=== PATIENT | female | born 1965 | race Two or more races ===

== ENCOUNTER 2016-04-14 13:51 | Observation (INO) | payer OTHER ==
[2016-04-14] MEDS: LORAZEPAM 1 MG TABLET PO PRN ×2 (14:53→23:27)
[2016-04-14] MEDS: NORMAL SALINE 1000 ML 1,000 ML IV PRN ×3 (15:04→20:37)
[2016-04-14 15:20] LABS: ABSOLUTE LYMPHOCYTES (AUTO) 0.9 10^3/uL (0.5-4.7); ABSOLUTE MONOCYTES (AUTO) 0.6 10^3/uL (0.1-1.4); ABSOLUTE NEUT (AUTO) 6.6 10^3/uL (1.7-8.2); BASOPHILS % (AUTO) 0.1 % (0-2); EOSINOPHILS % (AUTO) 0.1 % (0-6); HEMATOCRIT 39.5 % (36.0-47.0); HEMOGLOBIN 13.4 g/dL (12.0-15.5); HGB HCT DIFFERENCE 0.7; MEAN CORPUSCULAR HEMOGLOBIN 29.3 pg (27.0-33.4); MEAN CORPUSCULAR HGB CONC 33.9 g/dL (32.0-36.0); MEAN CORPUSCULAR VOLUME 87 fl (80-97); MONOCYTES % (AUTO) 7.1 % (3-13); RED BLOOD COUNT 4.57 10^6/uL (3.72-5.28); SEGMENTED NEUTROPHILS % (AUTO) 81.7 % (42-78)
[2016-04-14 15:30] LABS: APPEARANCE,URINE SLIGHTLY-CLOUDY; BILIRUBIN,URINE NEGATIVE (NEGATIVE); GLUCOSE, URINE NEGATIVE (NEGATIVE); KETONES,URINE TRACE mg/dL (NEGATIVE); LEUKOCYTE ESTERASE,URINE NEGATIVE (NEGATIVE); NITRITE,URINE NEGATIVE (NEGATIVE); PROTEIN,URINE NEGATIVE (NEGATIVE); URINE SPECIFIC GRAVITY 1.008; UROBILINOGEN,URINE NEGATIVE mg/dL (<2.0)
[2016-04-14 15:40] LABS: ALANINE AMINOTRANSFERASE 39 U/L (9-52); ALBUMIN 4.7 g/dL (3.5-5.0); ALKALINE PHOSPHATASE 70 U/L (38-126); ANION GAP 17 (5-19); ASPARTATE AMINO TRANSFERASE 49 U/L (14-36); BILIRUBIN,TOTAL 0.6 mg/dL (0.2-1.3); BLOOD UREA NITROGEN 7 mg/dL (7-20); CALCIUM 9.8 mg/dL (8.4-10.2); CARBON DIOXIDE 26 mmol/L (22-30); CHLORIDE 94 mmol/L (98-107); CREATINE KINASE 103 U/L (30-135); CREATININE RESULT 0.56 mg/dL (0.52-1.25); GLUCOSE 104 mg/dL (75-110); POTASSIUM 4.1 mmol/L (3.6-5.0); SODIUM 136.9 mmol/L (137-145); TOTAL PROTEIN 7.3 g/dL (6.3-8.2)
[2016-04-14 15:55] LABS: CREATINE KINASE MB 0.8 ng/mL (<4.55)
[2016-04-14 15:59] LABS: TROPONIN I 0.066 ng/mL
--- NOTE | 2016-04-14 16:04 | EKG REPORT ---
SEVERITY:- OTHERWISE NORMAL ECG - SINUS TACHYCARDIA : Confirmed by: Jose Mcghee 14-Apr-2016 16:03:11
[2016-04-14 16:11] LABS: THYROID STIMULATING HORMONE 0.89 uIU/mL (0.47-4.68)
[2016-04-14 18:05] LABS: CREATINE KINASE MB 0.81 ng/mL (<4.55)
[2016-04-14 18:06] LABS: TROPONIN I < 0.012 ng/mL
--- NOTE | 2016-04-14 18:19 | ER Document Report ---
ED General - General Chief Complaint: Pelvic Pain Stated Complaint: WEAKNESS Time seen by provider: 18:18 Mode of Arrival: Ambulatory Information source: Patient Notes: This is a 50-year-old female that was brought in by ambulance from [facility] because of a syncopal episode last night. Patient does give a 3 day history of nausea, vomiting and diarrhea. Patient is not been able to tolerate her medicines (Lexapro, Sudafed, Tylenol). She states that she fell and hit her head and had loss of consciousness last night. She's been very jittery and just does not "feel right". - HPI Onset: Just prior to arrival Onset/Duration: Gradual Quality of pain: No pain Severity: None Pain Level: Denies Associated symptoms: denies: Chills, Fever, Shortness of breath Exacerbated by: Denies Relieved by: Denies Similar symptoms previously: No Recently seen / treated by doctor: No - Related Data Allergies/Adverse Reactions: msg Allergy (Uncoded 04/14/16 16:34) Past Medical History - General Information source: Patient - Social History Smoking Status: Never Smoker Cigarette use (# per day): No Chew tobacco use (# tins/day): No Frequency of alcohol use: None Drug Abuse: None Lives with: Family Family History: Reviewed & Not Pertinent Patient has suicidal ideation: No Patient has homicidal ideation: No - Medical History Medical History: Negative - Past Medical History Cardiac Medical History: Reports: Hx Hypercholesterolemia, Hx Hypertension Pulmonary Medical History: Reports: None EENT Medical History: Reports: None Neurological Medical History: Reports: None Endocrine Medical History: Reports: None Renal/ Medical History: Reports: None Malignancy Medical History: Reports: None GI Medical History: Reports: None Musculoskeltal Medical History: Reports None Skin Medical History: Reports None Psychiatric Medical History: Reports: None Traumatic Medical History: Reports: None Infectious Medical History: Reports: None Surgical Hx: Negative Review of Systems - Review of Systems Constitutional: No symptoms reported EENT: No symptoms reported Cardiovascular: See HPI Respiratory: No symptoms reported Gastrointestinal: No symptoms reported Genitourinary: No symptoms reported Female Genitourinary: No symptoms reported Musculoskeletal: No symptoms reported Skin: No symptoms reported Hematologic/Lymphatic: No symptoms reported Neurological/Psychological: No symptoms reported Physical Exam - Vital signs Vitals: Pulse Ox 96 04/14/16 15:12 Notes: Physical exam: GENERAL: 50-year-old female, alert and oriented 3, the patient appears flushed , she is tachycardic. HEAD: Atraumatic, normocephalic. EYES: Pupils equal round and reactive to light, extraocular movements intact, sclera anicteric, conjunctiva are normal. ENT: TMs normal, nares patent, oropharynx clear without exudates. Moist mucous membranes. NECK: Normal range of motion, supple without lymphadenopathy or JVD. LUNGS: Breath sounds clear to auscultation bilaterally and equal. No wheezes rales or rhonchi. HEART: Tachycardia without murmurs, rubs or gallops. ABDOMEN: Soft, nontender, normoactive bowel sounds. No guarding, no rebound. No masses appreciated. EXTREMITIES: Normal range of motion, no pitting or edema. No clubbing or cyanosis. NEUROLOGICAL: Cranial nerves II through XII grossly intact. Normal speech, normal gait. PSYCH: Normal mood, normal affect. SKIN: Warm, Dry, normal turgor, no rashes or lesions noted. Course - Vital Signs Vital signs: Temp Pulse Resp BP Pulse Ox 98.2 F 12 138/103 H 99 04/14/16 15:13 04/14/16 18:01 04/14/16 18:00 04/14/16 18:01 - Laboratory Result Diagrams: 04/14/16 15:00 04/14/16 15:00 Laboratory results interpreted by me: 04/14/16 04/14/16 04/14/16 15:00 15:00 15:00 RDW 15.0 H Seg Neutrophils % 81.7 H Lymphocytes % 11.0 L Sodium 136.9 L Chloride 94 L AST 49 H Urine Ketones TRACE H Urine Blood SMALL H - Diagnostic Test Radiology reviewed: Image reviewed, Reports reviewed - CTA shows no pulmonary emboli - EKG Interpretation by Mi Rate: Tachycardia Rhythm: NSR - EKG shows sinus tachycardia with a ventricular rate of 111 Discharge - Discharge Clinical Impression: syncope Condition: Stable Disposition: HOME, SELF-CARE Admitting Provider: Hospitalist - Dr. Ying Unit Admitted: Telemetry
[2016-04-14 20:35] LABS: URINE BARBITURATES SCREEN NEGATIVE; URINE METHADONE SCREEN NEGATIVE; URINE PHENCYCLIDINE SCREEN NEGATIVE
[2016-04-14] MEDS ORDERED: METOPROLOL TARTRATE 25 MG TABLET PO ONE (20:45)
[2016-04-14] MEDS ORDERED: ENOXAPARIN SODIUM INJ 40 MG/0.4 ML DISP.SYRIN SUBCUT ONE (21:00)
[2016-04-15 07:04] LABS: ABSOLUTE EOSINOPHILS # (AUTO) 0.1 10^3/uL (0.0-0.6); ABSOLUTE MONOCYTES (AUTO) 0.5 10^3/uL (0.1-1.4); ABSOLUTE NEUT (AUTO) 3.2 10^3/uL (1.7-8.2); BASOPHILS % (AUTO) 0.6 % (0-2); EOSINOPHILS % (AUTO) 1.3 % (0-6); HEMATOCRIT 36.2 % (36.0-47.0); HEMOGLOBIN 12.4 g/dL (12.0-15.5); LYMPHOCYTES % (AUTO) 21.3 % (13-45); MEAN CORPUSCULAR HEMOGLOBIN 29.8 pg (27.0-33.4); MEAN CORPUSCULAR HGB CONC 34.3 g/dL (32.0-36.0); MEAN CORPUSCULAR VOLUME 87 fl (80-97); RED BLOOD COUNT 4.17 10^6/uL (3.72-5.28); RED CELL DISTRIBUTION WIDTH 14.8 % (11.5-14.0); SEGMENTED NEUTROPHILS % (AUTO) 65.8 % (42-78); WHITE BLOOD COUNT 4.8 10^3/uL (4.0-10.5)
[2016-04-15 07:20] LABS: ALANINE AMINOTRANSFERASE 42 U/L (9-52); ALBUMIN 3.8 g/dL (3.5-5.0); ALKALINE PHOSPHATASE 55 U/L (38-126); ANION GAP 12 (5-19); ASPARTATE AMINO TRANSFERASE 38 U/L (14-36); BILIRUBIN,TOTAL 0.8 mg/dL (0.2-1.3); BLOOD UREA NITROGEN 6 mg/dL (7-20); CARBON DIOXIDE 23 mmol/L (22-30); CHLORIDE 102 mmol/L (98-107); CHOLESTEROL 180.15 mg/dL (0-200); CREATININE RESULT 0.59 mg/dL (0.52-1.25); Direct HDL 96 mg/dL (>40); GLUCOSE 77 mg/dL (75-110); SODIUM 137.3 mmol/L (137-145); TOTAL PROTEIN 6.3 g/dL (6.3-8.2); TRIGLYCERIDES 118 mg/dL (<150)
[2016-04-15 07:38] LABS: DIRECT LDL 69 mg/dL (<100)
[2016-04-15 07:47] LABS: TROPONIN I < 0.012 ng/mL
[2016-04-15] MEDS ORDERED: ENOXAPARIN SODIUM INJ 40 MG/0.4 ML DISP.SYRIN SUBCUT SCH (08:00)
--- NOTE | 2016-04-15 08:01 | EKG REPORT ---
SEVERITY:- NORMAL ECG - SINUS RHYTHM : Confirmed by: Jose Mcghee 15-Apr-2016 08:00:52
[2016-04-15] MEDS ORDERED: METOPROLOL TARTRATE 25 MG TABLET PO SCH (10:00)
[2016-04-15] MEDS ORDERED: OXYCODONE-ACETAMINOPHEN 5-325 MG TABLET PO PRN (13:04)
[2016-04-15] MEDS: NORMAL SALINE 1000 ML 1,000 ML IV PRN (14:55)
--- NOTE | 2016-04-15 14:56 | PDOC H&P ---
History of Present Illness Admission Date/PCP: 04/14/16 19:10 History of Present Illness: CHRISTIE FOLEY is a 50 year old female was brought in by ambulance from [facility] because of a syncopal episode last night. Patient does give a 3 day history of nausea, vomiting and diarrhea. Patient is not been able to tolerate her medicines (Lexapro, Sudafed , Tylenol). She states that she fell and hit her head and had loss of consciousness last night. She's been very jittery and just does not "feel right ". upon evaluation in the ED patient was found tachycardic hypertensive CT abdomen and pelvis this described a pelvic mass She was subsequently admitted overnight for observation under hospitalist service Past Medical History Cardiac Medical History: Reports: Hyperlipidema, Hypertension Pulmonary Medical History: Reports: None EENT Medical History: Reports: None Neurological Medical History: Reports: None Endocrine Medical History: Reports: None Renal/ Medical History: Reports: None Malignancy Medical History: Reports: None GI Medical History: Reports: None Musculoskeltal Medical History: Reports: None Skin Medical History: Reports: None Psychiatric Medical History: Reports: None Traumatic Medical History: Reports: None Infectious Medical History: Reports: None Social History Lives with: Family Smoking Status: Never Smoker Frequency of Alcohol Use: Social - 2 bottles red wine a week Drugs: None - Advance Directive Resuscitation Status: Full Code Surrogate healthcare decision maker:: gómez Chu [phone] Family History Family History: Reviewed & Not Pertinent Parental Family History Reviewed: Yes - father [place] Children Family History Reviewed: Yes Sibling(s) Family History Reviewed.: Yes - SLE DM Medication/Allergy Home Medications: Escitalopram Oxalate [Lexapro 10 mg Tablet] 1 tab PO QAM 04/14/16 Esomeprazole Magnesium [Nexium] 1 cap PO DAILY 04/14/16 Metoprolol Succinate [Toprol Xl 25 mg Tab.sr] 25 mg PO DAILY #30 tab.sr.24h 08/25 Oxycodone HCl/Acetaminophen [Percocet 5-325 mg Tablet] 1 tab PO Q4HP PRN #15 tablet 04/15/16 Allergies/Adverse Reactions: msg Allergy (Uncoded 04/14/16 16:34) Review of Systems Constitutional: PRESENT: fatigue, weakness, other - Low-grade fever ; weight loss 4 pounds. ABSENT: chills, fever(s), headache(s), weight gain, weight loss Eyes: ABSENT: visual disturbances Ears: ABSENT: hearing changes Cardiovascular: ABSENT: chest pain, dyspnea on exertion, edema, orthropnea, palpitations Respiratory: ABSENT: cough, hemoptysis Gastrointestinal: ABSENT: abdominal pain, constipation, diarrhea, hematemesis, hematochezia, nausea, vomiting Genitourinary: PRESENT: dysuria, other - Pressure over the bladder. ABSENT: hematuria Musculoskeletal: ABSENT: joint swelling Integumentary: ABSENT: rash, wounds Neurological: PRESENT: other - Syncope. ABSENT: abnormal gait, abnormal speech , confusion, dizziness, focal weakness, syncope Psychiatric: ABSENT: anxiety, depression, homidical ideation, suicidal ideation Endocrine: ABSENT: cold intolerance, heat intolerance, polydipsia, polyuria Hematologic/Lymphatic: ABSENT: easy bleeding, easy bruising Physical Exam Vital Signs: Temp Pulse Resp BP Pulse Ox 97.6 F 87 18 130/47 H 98 04/15/16 12:47 04/15/16 12:47 04/15/16 08:00 04/15/16 12:47 04/15/16 12:47 Intake & Output 04/14/16 04/15/16 04/16/16 00:59 00:59 00:59 Intake Total 230 0 Balance 230 0 Weight 69.853 kg 70.6 kg General appearance: PRESENT: no acute distress, well-developed, well-nourished Head exam: PRESENT: atraumatic, normocephalic Eye exam: PRESENT: conjunctiva pink, EOMI, PERRLA. ABSENT: scleral icterus Ear exam: PRESENT: normal external ear exam Mouth exam: PRESENT: moist, tongue midline Neck exam: ABSENT: carotid bruit, JVD, lymphadenopathy, thyromegaly Respiratory exam: PRESENT: clear to auscultation rosendo. ABSENT: rales, rhonchi, wheezes Cardiovascular exam: PRESENT: RRR. ABSENT: diastolic murmur, rubs, systolic murmur Pulses: PRESENT: normal dorsalis pedis pul Vascular exam: PRESENT: normal capillary refill GI/Abdominal exam: PRESENT: normal bowel sounds, soft. ABSENT: distended, guarding, mass, organolmegaly, rebound, tenderness Rectal exam: PRESENT: deferred Extremities exam: PRESENT: full ROM. ABSENT: calf tenderness, clubbing, pedal edema Neurological exam: PRESENT: alert, awake, oriented to person, oriented to place , oriented to time, oriented to situation, CN II-XII grossly intact. ABSENT: motor sensory deficit Psychiatric exam: PRESENT: appropriate affect, normal mood. ABSENT: homicidal ideation, suicidal ideation Skin exam: PRESENT: dry, intact, warm. ABSENT: cyanosis, rash Results Laboratory Results: 04/15/16 06:05 04/15/16 06:05 04/15/16 04/15/16 06:05 06:05 WBC 4.8 RBC 4.17 Hgb 12.4 Hct 36.2 MCV 87 MCH 29.8 MCHC 34.3 RDW 14.8 H Plt Count 199 Seg Neutrophils % 65.8 Lymphocytes % 21.3 Monocytes % 11.0 Eosinophils % 1.3 Basophils % 0.6 Absolute Neutrophils 3.2 Absolute Lymphocytes 1.0 Absolute Monocytes 0.5 Absolute Eosinophils 0.1 Absolute Basophils 0.0 Sodium 137.3 Potassium 4.0 Chloride 102 Carbon Dioxide 23 Anion Gap 12 BUN 6 L Creatinine 0.59 Est GFR ( Amer) > 60 Est GFR (Non-Af Amer) > 60 Glucose 77 Calcium 9.0 Total Bilirubin 0.8 AST 38 H ALT 42 Alkaline Phosphatase 55 Total Protein 6.3 Albumin 3.8 Triglycerides 118 Cholesterol 180.15 LDL Cholesterol Direct 69 VLDL Cholesterol 24.0 HDL Cholesterol 96 04/14/16 04/15/16 23:32 06:05 Troponin I < 0.012 < 0.012 NT-Pro-B Natriuret Pep 90 Impressions: Chest X-Ray 04/14/16 14:15 IMPRESSION: NO ACUTE RADIOGRAPHIC FINDING IN THE CHEST. Head CT 04/14/16 14:19 IMPRESSION: Motion artifact. Limited negative study Abdomen/Pelvis CT 04/14/16 16:05 IMPRESSION: The uterus is enlarged and contains a heterogeneous mass as noted above most consistent with a large uterine fibroid. The possibility of a uterine sarcoma cannot be completely excluded. An eccentrically positioned IUD is identified related to the uterine fibroid. The bladder is distended with a uterine impression on the bladder. Other findings as noted above Chest/Abdomen CTA 04/14/16 16:21 IMPRESSION: No evidence for pulmonary embolic disease. No consolidations or pleural effusions are identified. Large hiatal hernia is identified. Other findings as noted above Carotid Doppler Study 04/14/16 19:14 IMPRESSION: NO HEMODYNAMICALLY SIGNIFICANT STENOSIS. Pelvis Ultrasound 04/15/16 08:00 IMPRESSION: Large uterine fibroid. Assessment & Plan - Diagnosis (1) Syncope Qualifiers: Syncope type: vasovagal syncope Qualified Code(s): R55 - Syncope and collapse Is this a current diagnosis for this admission?: YesPlan: Likely vasovagal secondary to dehydration We will keep the patient IV fluids overnight CT head carotid ultrasound echocardiogram will be ordered (2) Sinus tachycardia Is this a current diagnosis for this admission?: YesPlan: Patient has normal TSH T3 and T4 Tachycardia likely secondary to dehydration (3) Dehydration Is this a current diagnosis for this admission?: Yes (4) Fibroid uterus Is this a current diagnosis for this admission?: YesPlan: We will schedule the patient for a pelvic ultrasound in a.m. (5) Essential hypertension Is this a current diagnosis for this admission?: YesPlan: Initiate metoprolol 25 mg twice a day - Time Time Spent: 50 to 70 Minutes - Inpatient Certification Based on my medical assessment, after consideration of the patient's comorbidities, presenting symptoms, or acuity I expect that the services needed warrant INPATIENT care.: No I certify that my determination is in accordance with my understanding of Medicare's requirements for reasonable and necessary INPATIENT services [42 CFR 412.3e].: Yes
--- NOTE | 2016-04-15 15:04 | PDOC DISCHARGE SUMMARY ---
General - Admit/Disc Date/PCP Admission Date/Primary Care Provider: 04/14/16 19:10 [facility] [place] Discharge Date: 04/15/16 - Discharge Diagnosis (1) Syncope Is this a current diagnosis for this admission?: Yes (2) Sinus tachycardia Is this a current diagnosis for this admission?: Yes (3) Dehydration Is this a current diagnosis for this admission?: Yes (4) Fibroid uterus Is this a current diagnosis for this admission?: Yes (5) Essential hypertension Is this a current diagnosis for this admission?: Yes - Additional Information Resuscitation Status: Full Code Home Medications: Escitalopram Oxalate [Lexapro 10 mg Tablet] 1 tab PO QAM 04/14/16 Esomeprazole Magnesium [Nexium] 1 cap PO DAILY 04/14/16 Metoprolol Succinate [Toprol Xl 25 mg Tab.sr] 25 mg PO DAILY #30 tab.sr.24h 08/25 Oxycodone HCl/Acetaminophen [Percocet 5-325 mg Tablet] 1 tab PO Q4HP PRN #15 tablet 04/15/16 History of Present Illness Patient complains of: syncope last night, weakness. nausea vomiting diarrhea History of Present Illness: CHRISTIE FOLEY is a 50 year old female was brought in by ambulance from [facility] [place] because of a syncopal episode last night. Patient does give a 3 day history of nausea, vomiting and diarrhea. Patient is not been able to tolerate her medicines (Lexapro, Sudafed , Tylenol). She states that she fell and hit her head and had loss of consciousness last night. She's been very jittery and just does not "feel right ". upon evaluation in the ED patient was found tachycardic hypertensive CT abdomen and pelvis this described a pelvic mass She was subsequently admitted overnight for observation under hospitalist service Hospital Course Hospital Course: Patient is a 50 year old with no significant medical past medical issues who presented with a history of syncope the day before, nausea vomiting diarrhea WEIGHT loss upon evaluation patient was found tachycardic and hypertensive. Initial workup included normal labs, normal TSH Negative CTA of the chest for PE CT abdomen and pelvis described the uterine minus likely to be a uterine fibroid EKG sinus tachycardia Patient was admitted overnight to telemetry In Telemetry unit patient remained clinically stable No recurrence of syncope CT of the brain carotid ultrasound were normal echocardiogram was performed results are pending at time of this dictation blood pressure decreased from 140/109 to 140/46 with metoprolol 25 mg twice a day Patient was treated also with IV fluids An ultrasound of the pelvis, confirmed the presence of a fibroid uterus urine culture was negative Patient was discharged on Toprol-XL 25 mg twice a day and referral to [facility] Physical Exam Vital Signs: Temp Pulse Resp BP Pulse Ox 97.6 F 87 18 130/47 H 98 04/15/16 12:47 04/15/16 12:47 04/15/16 08:00 04/15/16 12:47 04/15/16 12:47 Intake & Output 04/14/16 04/15/16 04/16/16 00:59 00:59 00:59 Intake Total 230 0 Balance 230 0 Weight 69.853 kg 70.6 kg General appearance: PRESENT: no acute distress, well-developed, well-nourished Head exam: PRESENT: atraumatic, normocephalic Eye exam: PRESENT: conjunctiva pink, EOMI, PERRLA. ABSENT: scleral icterus Ear exam: PRESENT: normal external ear exam Mouth exam: PRESENT: moist, tongue midline Neck exam: ABSENT: carotid bruit, JVD, lymphadenopathy, thyromegaly Respiratory exam: PRESENT: clear to auscultation rosendo. ABSENT: rales, rhonchi, wheezes Cardiovascular exam: PRESENT: RRR. ABSENT: diastolic murmur, rubs, systolic murmur Pulses: PRESENT: normal dorsalis pedis pul Vascular exam: PRESENT: normal capillary refill GI/Abdominal exam: PRESENT: normal bowel sounds, soft. ABSENT: distended, guarding, mass, organolmegaly, rebound, tenderness Rectal exam: PRESENT: deferred Extremities exam: PRESENT: full ROM. ABSENT: calf tenderness, clubbing, pedal edema Neurological exam: PRESENT: alert, awake, oriented to person, oriented to place , oriented to time, oriented to situation, CN II-XII grossly intact. ABSENT: motor sensory deficit Psychiatric exam: PRESENT: appropriate affect, normal mood. ABSENT: homicidal ideation, suicidal ideation Skin exam: PRESENT: dry, intact, warm. ABSENT: cyanosis, rash Results Laboratory Results: 04/15/16 06:05 04/15/16 06:05 04/15/16 04/15/16 06:05 06:05 WBC 4.8 RBC 4.17 Hgb 12.4 Hct 36.2 MCV 87 MCH 29.8 MCHC 34.3 RDW 14.8 H Plt Count 199 Seg Neutrophils % 65.8 Lymphocytes % 21.3 Monocytes % 11.0 Eosinophils % 1.3 Basophils % 0.6 Absolute Neutrophils 3.2 Absolute Lymphocytes 1.0 Absolute Monocytes 0.5 Absolute Eosinophils 0.1 Absolute Basophils 0.0 Sodium 137.3 Potassium 4.0 Chloride 102 Carbon Dioxide 23 Anion Gap 12 BUN 6 L Creatinine 0.59 Est GFR ( Amer) > 60 Est GFR (Non-Af Amer) > 60 Glucose 77 Calcium 9.0 Total Bilirubin 0.8 AST 38 H ALT 42 Alkaline Phosphatase 55 Total Protein 6.3 Albumin 3.8 Triglycerides 118 Cholesterol 180.15 LDL Cholesterol Direct 69 VLDL Cholesterol 24.0 HDL Cholesterol 96 04/14/16 04/15/16 23:32 06:05 Troponin I < 0.012 < 0.012 NT-Pro-B Natriuret Pep 90 Impressions: Chest X-Ray 04/14/16 14:15 IMPRESSION: NO ACUTE RADIOGRAPHIC FINDING IN THE CHEST. Head CT 04/14/16 14:19 IMPRESSION: Motion artifact. Limited negative study Abdomen/Pelvis CT 04/14/16 16:05 IMPRESSION: The uterus is enlarged and contains a heterogeneous mass as noted above most consistent with a large uterine fibroid. The possibility of a uterine sarcoma cannot be completely excluded. An eccentrically positioned IUD is identified related to the uterine fibroid. The bladder is distended with a uterine impression on the bladder. Other findings as noted above Chest/Abdomen CTA 04/14/16 16:21 IMPRESSION: No evidence for pulmonary embolic disease. No consolidations or pleural effusions are identified. Large hiatal hernia is identified. Other findings as noted above Carotid Doppler Study 04/14/16 19:14 IMPRESSION: NO HEMODYNAMICALLY SIGNIFICANT STENOSIS. Pelvis Ultrasound 04/15/16 08:00 IMPRESSION: Large uterine fibroid. Plan Discharge Plan: follow-up with me in [facility] [place] Time Spent: Less than 30 Minutes
[2016-04-15 17:45] VITALS: BP 134/101
--- NOTE | 2016-04-15 18:31 | XCELERA REPORT ---
[address] [address] Transthoracic Echocardiogram Report Name: CHRISTIE FOLEY Age: 50 yrs Gender: Female : 1965 Patient Status: Inpatient Patient Location: 4S\S\430\S\A Study Date: 04/15/2016 08:55 AM Height: 68 in Weight: 154 lb BSA: 1.8 m2 Procedure: A two-dimensional transthoracic echocardiogram with color flow and Doppler was performed. Study Quality: Fair. Reason For Study: SYNCOPE History: SYNCOPE. Ordering Physician: CARRILLO PARIS Performed By: Livia Orellana Interpretation Summary The left ventricle is normal in size. There is normal left ventricular wall thickness. LV EF is > than 60% Left ventricular systolic function is normal. Doppler measurements suggest impaired left ventricular relaxation, which is associated with grade I/IV or mild diastolic dysfunction The left ventricular wall motion is normal. There is no thrombus. The right ventricle is normal in size and function. The left atrial size is normal. There is no evidence of mitral valve prolapse. There is no mitral valve stenosis. There is a trace to mild amount of mitral regurgitation There is no aortic valve stenosis There is no LVOT obstruction. No aortic regurgitation is present. There is a trace amount of tricuspid regurgitation Right ventricular systolic pressure is normal. RVSP is 25 mm of Hgb , with RA mean of 5. There is no pericardial effusion. MMode/2D Measurements \T\ Calculations RVDd: 2.4 cm LVIDd: 4.5 cm FS: 33.6 % Ao root diam: 3.3 cm IVSd: 0.92 cm LVIDs: 3.0 cm EDV(Teich): 93.5 ml LVPWd: 0.88 cmESV(Teich): 35.1 ml Ao root area: 8.8 cm2 EF(Teich): 62.5 % LA dimension: 3.1 cm LVOT diam: 2.1 cm LVOT area: 3.6 cm2 Doppler Measurements \T\ Calculations MV E max hang: MV P1/2t max hang: Ao V2 max: LV V1 max P.3 cm/sec 61.3 cm/sec 125.8 cm/sec 4.1 mmHg MV A max hang: MV P1/2t: 37.6 msec Ao max PG: LV V1 max: 68.6 cm/sec MVA(P1/2t): 5.9 cm2 6.3 mmHg 100.7 cm/sec MV E/A: 0.89 MV dec slope: SHARLENE(V,D): 2.9 cm2 477.6 cm/sec2 MV dec time: 0.13 sec PA V2 max: TR max hang: 106.6 cm/sec 224.9 cm/sec PA max PG: TR max P.2 mmHg 4.5 mmHg Left Ventricle The left ventricle is normal in size. There is normal left ventricular wall thickness. LV EF is > than 60%. Left ventricular systolic function is normal. Doppler measurements suggest impaired left ventricular relaxation, which is associated with grade I/IV or mild diastolic dysfunction. The left ventricular wall motion is normal. There is no thrombus. Right Ventricle The right ventricle is normal in size and function. Atria The right atrium is normal. The left atrial size is normal. Mitral Valve There is no evidence of mitral valve prolapse. There is no vegetation seen on the mitral valve. There is no mitral valve stenosis. There is a trace to mild amount of mitral regurgitation. Aortic Valve The aortic valve is trileaflet. The aortic valve opens well. The aortic valve is normal in structure and function. There is no aortic valvular vegetation. There is no aortic valve stenosis. There is no LVOT obstruction. No aortic regurgitation is present. Tricuspid Valve There is no tricuspid stenosis. There is a trace amount of tricuspid regurgitation. Right ventricular systolic pressure is normal. RVSP is 25 mm of Hgb , with RA mean of 5. Pulmonic Valve There is no pulmonic valvular stenosis. There is no pulmonic valvular regurgitation. Great Vessels The aortic root is normal size. Effusions There is no pericardial effusion. : CARRILLO PARIS > Mayra Hansen
== END 2016-04-15 19:00 | disposition home or self-care (01) ==
LOC: ER 13:51 → EH 19:10 → UNDOADMOB 19:16 → EH 19:16 → 4S 23:05
PROVIDERS: ADMIT Emergency Medicine; ATTEND Emergency Medicine
DX: R55 Syncope and collapse (principal); R00.0 Tachycardia, unspecified; I10 Essential (primary) hypertension; E86.0 Dehydration; D25.9 Leiomyoma of uterus, unspecified; E87.5 Hyperkalemia
CPT/HCPCS: 93005 ×2; 99285; 96372; 96360; 36415 ×2; 87086; 84439; 82553; 82550; 84443; 85025 ×2; 80053 ×2; 81001; 84484 ×2; 80307; 80061; 83880; 93306; 93880; 71010; 76856; 70450; 71275; 74177; 93010 ×2; G0378 ×3; J1650 ×2; J7030 ×2

== ENCOUNTER 2020-03-02 09:14 | Emergency (ER) | payer SELFPAY ==
[2020-03-02] MEDS ORDERED: NORMAL SALINE 1000 ML 1,000 ML IV ONE ×2 (10:14→16:39)
--- NOTE | 2020-03-02 10:16 | ER Document Report ---
ED Medical Screen (RME) - General Stated Complaint: ETOH ABUSE Time Seen by Provider: 03/02/20 10:13 Primary Care Provider: MARY BENSON FNP [Primary Care Provider] - Follow up as needed Notes: HPI: 54-year-old female with history of anxiety presenting for alcohol intoxication. Patient states she wants rehab. Friend with the patient indicates patient has been drinking for 3 days. Patient states that her last drink was yesterday. She states that they went over to [facility] and her alcohol level was 400 so they sent her here for clearance PHYSICAL EXAMINATION: Patient is answering questions appropriately although speech is slightly slurred. Heart rate is elevated, lung sounds clear to auscultation I have greeted and performed a rapid initial assessment of this patient. A comprehensive ED assessment and evaluation of the patient, analysis of test results and completion of medical decision making process will be conducted by an additional ED providers. TRAVEL OUTSIDE OF THE [place] IN LAST 30 DAYS: No - Related Data Allergies/Adverse Reactions: msg Allergy (Uncoded 03/02/20 10:10) Past Medical History - Past Medical History Cardiac Medical History: Reports: Hx Hypercholesterolemia, Hx Hypertension - Immunizations Hx Diphtheria, Pertussis, Tetanus Vaccination: Yes Physical Exam - Vital signs Vitals: Temp Pulse BP Pulse Ox 98.3 F 139 H 110/85 95 03/02/20 09:57 03/02/20 09:57 03/02/20 09:57 03/02/20 09:57 Course - Vital Signs Vital signs: Temp Pulse Resp BP Pulse Ox 98.3 F 139 H 110/85 95 03/02/20 09:57 03/02/20 09:57 03/02/20 09:57 03/02/20 09:57 Doctor's Discharge - Discharge Referrals: MARY BENSON FNP [Primary Care Provider] - Follow up as needed
[2020-03-02 11:00] LABS: ABSOLUTE LYMPHOCYTES (AUTO) 1.2 10^3/uL (0.5-4.7); ABSOLUTE MONOCYTES (AUTO) 0.4 10^3/uL (0.1-1.4); BASOPHILS % (AUTO) 0.3 % (0-2); EOSINOPHILS % (AUTO) 0.1 % (0-6); HEMATOCRIT 35.5 % (36.0-47.0); LYMPHOCYTES % (AUTO) 12.7 % (13-45); MEAN CORPUSCULAR HEMOGLOBIN 20.8 pg (27.0-33.4); MEAN CORPUSCULAR VOLUME 67 fl (80-97); MONOCYTES % (AUTO) 4.1 % (3-13); PLATELET COUNT 267 10^3/uL (150-450); RED BLOOD COUNT 5.28 10^6/uL (3.72-5.28); SEGMENTED NEUTROPHILS % (AUTO) 82.8 % (42-78); TOTAL CELLS COUNTED % (AUTO) 100 %; WHITE BLOOD COUNT 9.7 10^3/uL (4.0-10.5)
[2020-03-02 11:09] LABS: APPEARANCE,URINE SLIGHTLY-CLOUDY; BILIRUBIN,URINE NEGATIVE (NEGATIVE); COLOR,URINE YELLOW; GLUCOSE, URINE NEGATIVE (NEGATIVE); KETONES,URINE NEGATIVE (NEGATIVE); LEUKOCYTE ESTERASE,URINE NEGATIVE (NEGATIVE); NITRITE,URINE NEGATIVE (NEGATIVE); PROTEIN,URINE 30 mg/dL (NEGATIVE); URINE SPECIFIC GRAVITY 1.017; UROBILINOGEN,URINE NEGATIVE mg/dL (<2.0)
[2020-03-02 11:20] LABS: ALBUMIN 4.6 g/dL (3.5-5.0); ALKALINE PHOSPHATASE 104 U/L (38-126); ASPARTATE AMINO TRANSFERASE 67 U/L (14-36); BILIRUBIN,TOTAL 0.4 mg/dL (0.2-1.3); BLOOD UREA NITROGEN 15 mg/dL (7-20); CALCIUM 8.7 mg/dL (8.4-10.2); CARBON DIOXIDE 22 mmol/L (22-30); CHLORIDE 98 mmol/L (98-107); GLUCOSE 123 mg/dL (75-110); POTASSIUM 4.1 mmol/L (3.6-5.0); TOTAL PROTEIN 8.1 g/dL (6.3-8.2)
[2020-03-02 11:21] LABS: ACETAMINOPHEN < 10 ug/mL (10-30); SALICYLATE < 1.0 mg/dL (2.0-20.0)
[2020-03-02 11:29] LABS: URINE AMPHETAMINES SCREEN NEGATIVE; URINE BARBITURATES SCREEN NEGATIVE; URINE BENZODIAZEPINES SCREEN NEGATIVE; URINE COCAINE SCREEN NEGATIVE; URINE MARIJUANA (THC) SCREEN NEGATIVE; URINE METHADONE SCREEN NEGATIVE; URINE PHENCYCLIDINE SCREEN NEGATIVE
[2020-03-02 11:38] LABS: ANION GAP 21 (5-19)
[2020-03-02 11:39] LABS: ALCOHOL 384 mg/dL (NONE DETECTED)
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
--- NOTE | 2020-03-02 12:27 | RADIOLOGY REPORT (SQ) ---
EXAM DESCRIPTION: CHEST SINGLE VIEW IMAGES COMPLETED DATE/TIME: 03/02/2020 12:08 pm REASON FOR STUDY: 45; cough COMPARISON: 04/14/2016. EXAM PARAMETERS: NUMBER OF VIEWS: One view. TECHNIQUE: Single frontal radiographic view of the chest acquired. RADIATION DOSE: NA LIMITATIONS: None. FINDINGS: LUNGS AND PLEURA: No opacities, masses or pneumothorax. No pleural effusion. MEDIASTINUM AND HILAR STRUCTURES: No masses. Contour normal. HEART AND VASCULAR STRUCTURES: Heart normal in size. Normal vasculature. BONES: No acute findings. HARDWARE: None in the chest. OTHER: Hiatal hernia. No other significant finding. IMPRESSION: NO ACUTE RADIOGRAPHIC FINDING IN THE CHEST. TECHNICAL DOCUMENTATION: JOB ID: [id number] 2010 [email or web address]- All Rights Reserved Reading location - IP/workstation name: [email or web address]
[2020-03-02] MEDS ORDERED: LORAZEPAM INJ 2 MG/1 ML VIAL IV ONE (16:39)
[2020-03-02 16:41] VITALS: BP 128/81
--- NOTE | 2020-03-02 19:01 | EKG REPORT ---
SEVERITY:- BORDERLINE ECG - SINUS TACHYCARDIA BORDERLINE T ABNORMALITIES, INFERIOR LEADS : Confirmed by: Mayra Hansen MD 02-Mar-2020 19:00:54
== END 2020-03-02 18:06 | disposition home or self-care (01) ==
LOC: ER 09:14
DX: F10.129 Alcohol abuse with intoxication, unspecified (principal); I10 Essential (primary) hypertension; Z63.79 Other stressful life events affecting family and household; Z91.018 Allergy to other foods; Z20.828 Contact with and (suspected) exposure to other viral communicable diseases
CPT/HCPCS: 93005; 99285; 96361; 96374; 36415; 80307 ×4; 85025; 87635; 80053; 81001; 71045; 93010; J2060; J7030; C9803

== ENCOUNTER 2020-03-27 21:04 | Emergency (ER) | payer SELFPAY ==
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
[2020-03-28 02:01] LABS: ABSOLUTE BASOPHILS # (AUTO) 0.1 10^3/uL (0.0-0.2); ABSOLUTE EOSINOPHILS # (AUTO) 0.2 10^3/uL (0.0-0.6); ABSOLUTE LYMPHOCYTES (AUTO) 2.1 10^3/uL (0.5-4.7); ABSOLUTE MONOCYTES (AUTO) 0.5 10^3/uL (0.1-1.4); ABSOLUTE NEUT (AUTO) 3.6 10^3/uL (1.7-8.2); BASOPHILS % (AUTO) 0.8 % (0-2); EOSINOPHILS % (AUTO) 3.3 % (0-6); HEMATOCRIT 30.8 % (36.0-47.0); HEMOGLOBIN 9.4 g/dL (12.0-15.5); LYMPHOCYTES % (AUTO) 32.1 % (13-45); MEAN CORPUSCULAR HEMOGLOBIN 20.1 pg (27.0-33.4); MEAN CORPUSCULAR HGB CONC 30.6 g/dL (32.0-36.0); MEAN CORPUSCULAR VOLUME 66 fl (80-97); MONOCYTES % (AUTO) 7.2 % (3-13); PLATELET COUNT 332 10^3/uL (150-450); RED BLOOD COUNT 4.68 10^6/uL (3.72-5.28); RED CELL DISTRIBUTION WIDTH 21.1 % (11.5-14.0); SEGMENTED NEUTROPHILS % (AUTO) 56.6 % (42-78); TOTAL CELLS COUNTED % (AUTO) 100 %; WHITE BLOOD COUNT 6.4 10^3/uL (4.0-10.5)
--- NOTE | 2020-03-28 02:08 | ER Document Report ---
ED General - General Chief Complaint: ETOH Abuse Stated Complaint: ETOH LEVELS Time Seen by Provider: 03/27/20 22:48 Mode of Arrival: Ambulatory Notes: 54-year-old female with alcohol use disorder presents to "be checked out" because of her heavy drinking. Patient came because her daughter and son-in-law who she has been living with for the past few weeks were concerned because of her heavy drinking and wanted her to see a doctor. Patient says that there was no particular symptom that they were concerned about they just were alarmed by the quantity of alcohol she drinks which patient says is what she drinks at her baseline approximately 6 shots a day. Patient has previously had alcohol withdrawal and been treated at [facility], currently is not in withdrawal and is not intoxicated. Patient denies any injuries/falls, pain, vomiting, confusion, tremors, seizure, SI or HI, chest pain, shortness of breath TRAVEL OUTSIDE OF THE [place] IN LAST 30 DAYS: No - Related Data Allergies/Adverse Reactions: egg Allergy (Verified 03/27/20 22:41) msg Allergy (Uncoded 03/02/20 10:10) Home Medications: lexipro Past Medical History - General Information source: Patient - Social History Smoking Status: Never Smoker Drug Abuse: None Family History: Reviewed & Not Pertinent - Past Medical History Cardiac Medical History: Reports: Hx Hypercholesterolemia, Hx Hypertension - Immunizations Hx Diphtheria, Pertussis, Tetanus Vaccination: Yes Review of Systems - Review of Systems Notes: REVIEW OF SYSTEMS: CONSTITUTIONAL : Denies fever, chills, or sweats. EENT: Denies recent cold/sinus symptoms, denies throat pain CARDIOVASCULAR: Denies chest pain, URI RESPIRATORY: Denies cough, denies shortness of breath. GASTROINTESTINAL: Denies abdominal pain, nausea/vomiting. GENITOURINARY: Denies difficulty urinating, painful urination. MUSCULOSKELETAL: Denies neck pain, back pain. SKIN: Denies rash or skin lesions. HEMATOLOGIC : Denies easy bruising or bleeding. LYMPHATIC: Denies swollen, enlarged glands. NEUROLOGICAL: Denies headache, denies change in gait. PSYCHIATRIC: Denies SI or HI Physical Exam - Vital signs Vitals: Temp Pulse Resp BP Pulse Ox 98.2 F 97 16 124/82 100 03/27/20 21:10 03/27/20 21:10 03/27/20 21:10 03/27/20 21:10 03/27/20 21:10 - Notes Notes: PHYSICAL EXAMINATION: GENERAL: Well-appearing, well-nourished and in no acute distress. HEAD: Atraumatic, normocephalic. EYES: Pupils equal round and appropriate constriction, sclera anicteric, conjunctiva are normal. ENT: nares patent, moist mucous membranes. NECK: Normal range of motion, supple without lymphadenopathy LUNGS: Breath sounds clear to auscultation bilaterally and equal. No wheezes ra les or rhonchi. HEART: Regular rate and rhythm without murmurs ABDOMEN: Soft, nontender, no guarding, no masses, no CVAT EXTREMITIES: Normal range of motion, no pitting or edema. No cyanosis. NEUROLOGICAL: Awake, alert, conversing appropriately, moves all extremities spontaneously, no tremor, no psychomotor agitation PSYCH: Normal mood, normal affect, good insight SKIN: Warm, Dry, normal turgor, no rashes or lesions noted. Course - Re-evaluation Re-evalutation: 03/28/20 02:05 Asymptomatic patient presents to the ED at request of her daughter to be evaluated for her alcohol use disorder. Patient has no complaints and is currently neither intoxicated nor in withdrawal. Last drink several hours ago. Patient not ready to stop drinking at this time but says that she has access to resources to help with outpatient detox and a relapse counselor. Patient is aware that she cannot stop drinking without the assistance of a medical professional and I again emphasized that stopping alcohol without medical assistance could result in which she demonstrated understanding of. Labs were previously ordered in triage and although no obvious indication now to obtain them I discussed with patient and she did want them so she will wait for her lab results before I discharge her. Given return to ED precautions and make sure she knew that if she ever needed to stop drinking and could not access detox states she can return to the emergency department. 03/28/20 02:57 Patient had to be anemic on labs, however patient is aware of this and has been chronically anemic and takes iron supplement for this and she does not have any active bleeding symptoms and no symptoms of anemia at this time. Printed out all labs for patient to take when she follows up with her primary doctor. - Vital Signs Vital signs: Temp Pulse Resp BP Pulse Ox 98.2 F 97 16 124/82 100 03/27/20 21:10 03/27/20 21:10 03/27/20 21:10 03/27/20 21:10 03/27/20 21:10 - Laboratory Results Result Diagrams: 03/28/20 01:50 03/28/20 01:50 Laboratory Results Interpreted: 03/28/20 03/28/20 01:50 01:50 Hgb 9.4 L Hct 30.8 L MCV 66 L MCH 20.1 L MCHC 30.6 L RDW 21.1 H AST 53 H Critical Laboratory Results Reviewed: No Critical Results - Radiology Results Critical Radiology Results Reviewed: No Critical Results Discharge - Discharge Clinical Impression: Alcohol use disorder Iron deficiency anemia Qualifiers: Iron deficiency anemia type: unspecified iron deficiency Qualified Code(s): D50.9 - Iron deficiency anemia, unspecified Disposition: HOME, SELF-CARE Additional Instructions: After a period of frequent drinking, the brain and body are changed by the alcohol. When you quit or reduce your drinking, the nervous system becomes unstable. Withdrawal symptoms can start a few hours after your last drink, but sometimes don't begin until a couple of days later. Symptoms can include shakiness, sweating, insomnia, nausea, vomiting, fearfulness, hallucinations, and seizures. Treatment for alcohol withdrawal includes mild sedatives, vitamins, and fluids. You need to be with someone who can help if symptoms become severe. Many patients can withdraw at home. Admission to the hospital or a detox facility may be necessary if withdrawal symptoms are severe and uncontrollable. Go to the emergency room if you develop persistent vomiting, severe abdominal pain, fever, shortness of breath, hallucinations, uncontrollable tremors, or seizures. Do not stop drinking without medical assistance. Follow-up with your primary doctor regarding your anemia management. Return to the emergency department immediately if you have any confusion, tremors, seizure, uncontrolled vomiting, suicidal or homicidal thoughts, black or bloody stools, chest pain, shortness of breath, dizziness, fainting, or any other worsening or alarming symptoms. Call [facility] at [phone] for inpatient rehab admission.
[2020-03-28 02:28] LABS: ALBUMIN 4.2 g/dL (3.5-5.0); ALCOHOL 195 mg/dL (NONE DETECTED); ALKALINE PHOSPHATASE 68 U/L (38-126); ANION GAP 12 (5-19); ASPARTATE AMINO TRANSFERASE 53 U/L (14-36); BILIRUBIN,DIRECT 0.2 mg/dL (0.0-0.4); BILIRUBIN,TOTAL 0.4 mg/dL (0.2-1.3); BLOOD UREA NITROGEN 10 mg/dL (7-20); CALCIUM 8.9 mg/dL (8.4-10.2); CARBON DIOXIDE 24 mmol/L (22-30); CHLORIDE 107 mmol/L (98-107); GLUCOSE 93 mg/dL (75-110); POTASSIUM 4.8 mmol/L (3.6-5.0); TOTAL PROTEIN 7.6 g/dL (6.3-8.2)
[2020-03-28 03:52] VITALS: BP 119/90
== END 2020-03-28 03:51 | disposition home or self-care (01) ==
LOC: ER 21:04
DX: F10.10 Alcohol abuse, uncomplicated (principal); D50.9 Iron deficiency anemia, unspecified; I10 Essential (primary) hypertension; Z79.899 Other long term (current) drug therapy; Z91.012 Allergy to eggs; Z91.018 Allergy to other foods
CPT/HCPCS: 36415; 80053; 80307; 85025; 99283